=== PATIENT | male | born 1975 | race Caucasian/White ===

== ENCOUNTER 2016-05-13 20:54 | Emergency (ER) | payer OTHER, SELFPAY ==
[~2016-05-13] VITALS: Ht 170.2 cm; Wt 80.0 kg
[2016-05-13] MEDS ORDERED: SODIUM CHLORIDE 0.9% 1,000ML IVBOLUS ONE ×2 (22:00→23:00)
[2016-05-13] MEDS ORDERED: ACETAMINOPHEN 325 MG TABLET ONE (22:04)
[2016-05-13 22:28] LABS: RAPID INFLUENZA A Negative (Negative); RAPID INFLUENZA B Negative (Negative)
[2016-05-13 22:43] LABS: HEMOGLOBIN 15.1 g/dL (13.7-18.0)
[2016-05-13 22:55] LABS: ASPARTATE AMINO TRANSFERASE 19 U/L (15-37); BLOOD UREA NITROGEN 16 mg/dL (7-18)
[2016-05-13] MEDS ORDERED: CEFTRIAXONE PMX 1GM/50ML 50 ML ONE (22:57)
[2016-05-13] MEDS ORDERED: CEFTRIAXONE PMX 1GM/50ML 50 ML IV ONE (23:00)
[2016-05-13] MEDS ORDERED: AZITHROMYCIN 500 MG in SODIUM CHLORIDE 0.9% 250 ML IV ONE (23:00)
[2016-05-13 23:01] LABS: DIFF TOTAL CELLS COUNTED 100 CELL DIFF
[2016-05-13 23:03] LABS: IS PT STATUS REG ER OR PRE ER? YES; VERIFY COUNTS? YES
[2016-05-14 00:59] VITALS: BP 121/78
== END 2016-05-14 01:07 | disposition home or self-care (01) ==
LOC: ED 22:15
DX: J15.9 Unspecified bacterial pneumonia (principal); M54.6 Pain in thoracic spine; M10.9 Gout, unspecified
CPT/HCPCS: 36415; 71010; 80053; 81003; 83605; 84145; 84484; 85025; 87040; 87400; 96361; 96365; 96366; 99285; J0456; J0696; J7030; J7050